=== PATIENT | male | born 1990 | race African-American/Black ===

== ENCOUNTER 2021-10-04 18:11 | Emergency (ER) | payer OTHER ==
[~2021-10-04] VITALS: Ht 167.6 cm; Wt 78.0 kg
[2021-10-04 18:14] VITALS: BP 188/121
== END 2021-10-04 22:10 | disposition left against medical advice (07) ==
LOC: ER 18:11
DX: Z53.21 Procedure and treatment not carried out due to patient leaving prior to being seen by health care provider (principal)